=== PATIENT | male | born 1955 | race Caucasian/White ===

== ENCOUNTER 2017-05-03 19:17 | Inpatient (IN) | payer MEDICARE ==
[2017-05-03 20:13] LABS: #Basophils 0.1 thou/uL (0.0-0.2); #Eosinphils 0.1 thou/uL (0.0-0.7); #Lymphocytes 1.1 thou/uL (1.20-3.40); #Monocytes 0.8 thou/uL (0.11-0.59); #Neutrophils 6.9 thou/uL (1.40-6.50); %Basophils 0.6 % (0.0-1.0); %Eosinophils 0.7 % (0.0-10.0); %Lymphocytes 12.1 % (21.0-51.0); %Monocytes 9.4 % (0.0-10.0); Hematocrit 50.8 % (42.0-52.0); Mean Platelet Volume 8.3 fL (7.4-10.4); Red Blood Cell (RBC) Count 5.37 mill/uL (4.70-6.10); White Blood Cell (WBC) Count 8.9 thou/uL (4.8-10.8)
[2017-05-03 20:34] LABS: ALT (SGPT) 14 U/L (8-55); AST (SGOT) 32 U/L (5-34); Alkaline Phosphatase 53 U/L (40-150); Anion Gap 13 mmol/L (10-20); BUN (Urea Nitrogen) 26 mg/dL (8.4-25.7); Bilirubin, Total 0.6 mg/dL (0.2-1.2); Calc. Creatinine Clearance 0 mL/min (70-130); Calcium 8.5 mg/dL (7.8-10.44); Carbon Dioxide 26 mmol/L (23-31); Chloride 99 mmol/L (98-107); Estimated GFR-MDRD 53; Globulin 4.2 g/dL (2.4-3.5); Lipase 59 U/L (8-78); Protein, Total 7.5 g/dL (5.8-8.1)
[2017-05-03 20:36] LABS: Lactic Acid - Sepsis 3.3 mmol/L (0.5-2.2)
--- NOTE | 2017-05-03 20:47 | RAD ---
CHEST ONE VIEW 05/03/17 HISTORY: Recurrent hernia pain. COMPARISON: 11/23/10. FINDINGS: Portable upright chest: Limited evaluation due to motion. Heart is enlarged. Pulmonary vessels are prominent. Patchy intersti tial and alveolar opacities. No pleural effusion. No pneumothorax. IMPRESSION: 1. Limited evaluation due to motion. 2. Cardiomegaly. Interstitial and alveolar opacities. Congestive heart failure. POS: [facility]
[2017-05-03] MEDS ORDERED: Furosemide 40 MG/4 ML VIAL ONE (22:17)
[2017-05-03 22:28] LABS: Troponin I 0.032 ng/mL (< 0.028)
[2017-05-04 01:36] LABS: Troponin I 0.037 ng/mL (< 0.028)
[2017-05-04] MEDS ORDERED: Dextrose 50% Abboject 50 ML SYRINGE SLOW IVP PRN (02:03)
[2017-05-04] MEDS ORDERED: HYDROcodone/Acetaminophen 5/325 mg Tablet PO PRN (02:03)
[2017-05-04] MEDS ORDERED: HYDROcodone/Acetaminophen 10/325 mg Tablet PO PRN (02:03)
[2017-05-04] MEDS ORDERED: Ondansetron ODT 4 MG TAB PO PRN (02:03)
[2017-05-04] MEDS ORDERED: HumaLOG 300 UNITS/3 ML VIAL SC PRN (02:03)
[2017-05-04] MEDS ORDERED: Dextrose 5% in Water 1,000 ML IV PRN (02:03)
[2017-05-04] MEDS ORDERED: Acetaminophen 325 MG TAB PO PRN (02:03)
[2017-05-04 02:18] VITALS: BMI 49.3
[2017-05-04 03:09] LABS: #Eosinphils 0.1 thou/uL (0.0-0.7); #Lymphocytes 1.2 thou/uL (1.20-3.40); #Monocytes 1.1 thou/uL (0.11-0.59); #Neutrophils 8.2 thou/uL (1.40-6.50); %Basophils 0.1 % (0.0-1.0); %Eosinophils 0.6 % (0.0-10.0); %Lymphocytes 11.3 % (21.0-51.0); Hematocrit 48.2 % (42.0-52.0); Mean Platelet Volume 8.2 fL (7.4-10.4); Red Blood Cell (RBC) Count 5.09 mill/uL (4.70-6.10); White Blood Cell (WBC) Count 10.5 thou/uL (4.8-10.8)
[2017-05-04] MEDS: Furosemide 40 MG/4 ML VIAL SLOW IVP SCH ×4 (03:30→20:07)
[2017-05-04 03:32] LABS: Anion Gap 11 mmol/L (10-20); BUN (Urea Nitrogen) 27 mg/dL (8.4-25.7); Calc. Creatinine Clearance 130 mL/min (70-130); Calcium 8.5 mg/dL (7.8-10.44); Carbon Dioxide 30 mmol/L (23-31); Chloride 98 mmol/L (98-107); Estimated GFR-MDRD 56; Troponin I 0.025 ng/mL (< 0.028)
--- NOTE | 2017-05-04 06:29 | HP ---
DATE OF ADMISSION: 05/03/2017 TIME OF SERVICE: 11:45 p.m. CHIEF COMPLAINT: Shortness of breath. HISTORY OF PRESENT ILLNESS: Mr. Franco is a 62-year-old white male with history of severe obesity, sleep apnea, coronary artery disease that needs operative intervention, CHF presumably combined systolic and diastolic, and diabetes mellitus who presents to the emergency department for evaluation of abdominal discomfort. The patient initially says he came to the ER because he felt like his umbilical hernia repair that he had 15 years ago was coming undone. He had increased firmness to his belly and seemed to have more pain around the umbilical region. He also has a history of a leg ulcer due to chronic venous insufficiency and chronic edema. He has had increased drainage from the wound and some foul odor. In the ER, I was concerned with cellulitis. On arrival to the ER today, his oxygen saturation was noted to be 86% to 88% on room air and chest x-ray showed interstitial and alveolar opacity consistent with CHF, so we were called for admission. The patient denies any fevers or chills, no chest pain, no diarrhea or constipation. Does have some shortness of breath with orthopnea and PND. He has dyspnea on exertion. Noticed increased edema of his legs over baseline. He says his history really began 3 weeks ago with increased abdominal discomfort and 1 week ago had sneezing and cough and upper respiratory symptoms and then 1 to 2 days of increased shortness of breath. No other current complaints. PAST MEDICAL HISTORY: 1. Coronary artery disease, the patient had normal stress test. He underwent left heart catheterization a few months ago with Dr. Castorena and had what he thinks is three-vessel coronary artery disease and needs bypass surgery. He did see Dr. Blanco, but Dr. Blanco wanted him off cigarettes for 2 weeks prior to surgery and the patient was unable to do this until this time. He has been looking to seeing a hypnotist to help him quit smoking. 2. Congestive heart failure, unknown type, given his sleep apnea, severe obesity and multivessel coronary diseasecombined systolic and diastolic. 3. Diabetes mellitus type 2, non-insulin dependent. 4. Hypertension. 5. COPD. 6. Severe obesity. 7. Obstructive sleep apnea. Suspect the patient has cor pulmonale. PAST SURGICAL HISTORY: Includes, 1. Hemorrhoidectomy remotely. 2. Umbilical hernia repair, 12 to 15 years ago. 3. Back surgery in 1992, he thinks L4-L5 diskectomy and fusion. 4. Left heart catheterization with Dr. Castorena. HOME MEDICATIONS: 1. Lasix 40 mg daily. 2. Lisinopril/HCTZ 20/25 p.o. daily. 3. Metformin 1000 mg p.o. b.i.d. 4. Pravastatin 4 mg p.o. q.a.m. 5. Fenofibrate 48 mg daily. 6. Metoprolol tartrate 12.5 mg p.o. b.i.d. ALLERGIES: LATEX AND PENICILLIN. FAMILY HISTORY: Negative for clotting or bleeding disorder, no immune dysfunction. SOCIAL HISTORY: Significant for ongoing tobacco 1 pack per day. He has been smoking since he was in his teens, 2 packs per day until the last couple of months. He does not use any alcohol or IV drugs. He is to a common- law . REVIEW OF SYSTEMS: A 10-point review of systems was performed and negative for all other systems except stated as per HPI. PHYSICAL EXAMINATION: VITAL SIGNS: Temperature 98.0, pulse 98, blood pressure 102/73, respiratory rate 22, satting 94% on room air. GENERAL: He is awake. He is alert. He is oriented x3. He is a severely obese white male, appears to be in no distress. HEENT: Normocephalic, atraumatic. Pupils equal and reactive bilaterally. Mucous membranes are moist without visible lesions or thrush. LUNGS: Have coarse bilateral crackles to about mid lung field. He does not have any wheezing. No prolonged expiratory phase. Symmetrical chest excursion with good air movement. CARDIOVASCULAR: Has normal cardiac and regular. There is normal S1, S2. I do not appreciate murmurs. Heart sounds are extremely distant due to body habitus. ABDOMEN: Obese, it is nontender but tense. It is nondistended. I cannot palpate internal organs. EXTREMITIES: No cyanosis, no clubbing. He has a 3+ edema in the bilateral extremities at the knee level. Left lower extremity has a lateral ulceration. Slightly red around the area, it does have a foul odor, but does not appear necrotic. There is no crepitus. NEUROLOGIC: Cranial nerves II-XII are grossly intact without any focal neurologic deficits. He has good normal speech pattern and 5/5 strength. SKIN: Otherwise, warm, moist, and well perfused without any rash or lesions. MUSCULOSKELETAL: His large joints appear normal. There is no inflammation and no palpable effusions. LABORATORY DATA: Sodium 134, potassium 4.0, chloride 99, bicarbonate 26, BUN 26 , creatinine 1.36, glucose 101. Albumin is little bit low at 3.3, calcium 8.5. Lipase was normal at 59. Lactic acid 3.3 and CBC was normal. No BNP was performed. Chest x-ray showed cardiomegaly and interstitial/alveolar opacities consistent with CHF. ASSESSMENT AND PLAN: 1. Acute exacerbation of congestive heart failure: Suspect acute on chronic combined systolic and diastolic congestive heart failure. Give IV Lasix, will get a 2D echocardiogram, we will get strict I's and O's and daily weight. We will reevaluate in the morning. Does have known coronary artery disease, we will get serial cardiac biomarkers as well. 2. Coronary artery disease, as above. 3. Diabetes mellitus type 2. We will hold his metformin in the setting of increased lactic acid. We will use sliding scale insulin per correction. 4. Chronic obstructive pulmonary disease: Currently asymptomatic without acute exacerbation. 5. Hypertension. We will continue home medicines . 6. Severe obesity. 7. Obstructive sleep apnea, not on CPAP. MTDD
[2017-05-04] MEDS ORDERED: Piperacillin/Tazobactam 4.5 GM in Sodium Chloride 0.9% 100 ML IVPB SCH (09:00)
[2017-05-04] MEDS ORDERED: Vancomycin HCl 1 GM in Premix Bag 1 BAG IVPB SCH (09:00)
[2017-05-04] MEDS: Lisinopril/Hydrochlorothiazide 20/25 mg Tablet PO SCH (09:10)
[2017-05-04] MEDS: Famotidine 20 MG TAB PO SCH ×2 (09:10→20:07)
[2017-05-04] MEDS: Enoxaparin Sodium 40 MG/0.4 ML SYRINGE SC SCH (09:10)
[2017-05-04 10:53] LABS: Troponin I 0.028 ng/mL (< 0.028)
--- NOTE | 2017-05-04 14:45 | PDOC.PN ---
- Subjective Encounter Start Date: 05/04/17 Encounter Start Time: 14:30 Subjective: f/u for CHF likely diastolic with hx of 3v CAD needing CABG. Pt continues -: to smoke and CTS not willing to perform CABG if smoking. - Objective Resuscitation Status: Resuscitation Status FULL:Full Resuscitation MAR Reviewed: Yes Vital Signs & Weight: Vital Signs (12 hours) Temp Pulse Resp BP BP Pulse Ox 05/04/17 11:15 97.4 F L 97 20 131/89 95 05/04/17 09:10 96 117/78 05/04/17 07:25 97.9 F 96 20 117/78 93 L 05/04/17 07:20 97.9 F 96 20 93 L 05/04/17 04:00 98.1 F 98 20 116/64 91 L Weight Admit Weight 243 lb 9.6 oz Weight 343 lb 9.6 oz I&O: 05/03/17 05/04/17 05/05/17 06:59 06:59 06:59 Intake Total 680 Balance 680 Result Diagrams: 05/04/17 02:59 05/04/17 02:59 Additional Labs: Accuchecks 05/04/17 05/04/17 11:26 07:15 POC Glucose 115 H 116 H Microbiology 05/03/17 20:56 Venous blood - Left Hand Blood Culture - Preliminary Specimen has been received and culture in progress. No Growth to date. 05/03/17 20:53 Venous blood - Right Hand Blood Culture - Preliminary Specimen has been received and culture in progress. No Growth to date. Laboratory Tests 05/03/17 05/03/17 05/04/17 19:42 23:55 02:59 Troponin I 0.032 H 0.037 H 0.025 05/04/17 10:14 Troponin I 0.028 Radiology Reviewed by me: Yes (PCXR - interstitial markings, pulm edema) EKG Reviewed by me: Yes (Tele - SR with nadir) Phys Exam - Physical Examination Constitutional: NAD HEENT: PERRLA, oral pharynx no lesions Neck: no JVD, supple diminished in bases, coarse sounds bilat Cardiovascular: RRR firm Gastrointestinal: non-tender, no distention, positive bowel sounds Musculoskeletal: pulses present, edema present Neurological: normal sensation, moves all 4 limbs Psychiatric: A&O x 3 Deviation from normal: skin breakdown, erythema of bilat calf region with open wounds Skin: normal turgor, cap refill <2 seconds Dx/Plan (1) Acute on chronic diastolic CHF (congestive heart failure) Code(s): I50.33 - ACUTE ON CHRONIC DIASTOLIC (CONGESTIVE) HEART FAILURE Status : Acute Comment: Continue Lasix 40mg IV q6h, I/O's and daily weight, 2D Echo pending (2) CAD (coronary artery disease) Code(s): I25.10 - ATHSCL HEART DISEASE OF THREE AFFILIATED CORONARY ARTERY W/O ANG PCTRS Status: Chronic Comment: 3v CAD, needs CABG but still smoking (3) Tobacco abuse Code(s): Z72.0 - TOBACCO USE Status: Chronic Comment: Smoking cessation resources, consider Nicotine patch (4) Diabetes mellitus type II, uncontrolled Code(s): E11.65 - TYPE 2 DIABETES MELLITUS WITH HYPERGLYCEMIA Status: Chronic Comment: Continue ISS, resume Metformin, check A1C (5) Venous stasis ulcer Code(s): I83.009 - VARICOSE VEINS OF UNSP LOWER EXTREMITY W ULCER OF UNSP SITE; L97.909 - NON-PRS CHRONIC ULC UNSP PRT OF UNSP LOW LEG W UNSP SEVERITY Status : Acute Qualifiers: Venous stasis ulcer site: calf Comment: Continue local WCT, daily dressings, decrease edema (6) Morbid obesity Code(s): E66.01 - MORBID (SEVERE) OBESITY DUE TO EXCESS CALORIES Status: Chronic (7) MARTHA (obstructive sleep apnea) Code(s): G47.33 - OBSTRUCTIVE SLEEP APNEA (ADULT) (PEDIATRIC) Status: Chronic Comment: Needs outpt sleep study and home CPAP - Plan PT/OT, clinical social worker, respiratory therapy stable currently -: Continue pulmonary support, add Duonebs q4h prn -: Resume Metoprolol 12.5mg BID -: Outpt sleep study for MARTHA -: AM lab: BMP, CBC * .
[2017-05-04] MEDS: Atorvastatin Calcium 10 MG TAB PO SCH (20:07)
[2017-05-04] MEDS: Metoprolol Tartrate 25 MG TAB PO SCH (20:08)
[2017-05-05 06:39] LABS: Hematocrit 45.2 % (42.0-52.0); Neutrophil 82 % (42-75); Red Blood Cell (RBC) Count 4.66 mill/uL (4.70-6.10); White Blood Cell (WBC) Count 9.4 thou/uL (4.8-10.8)
[2017-05-05 07:04] LABS: Anion Gap 12 mmol/L (10-20); BUN (Urea Nitrogen) 34 mg/dL (8.4-25.7); Calc. Creatinine Clearance 100 mL/min (70-130); Calcium 8.5 mg/dL (7.8-10.44); Carbon Dioxide 31 mmol/L (23-31); Chloride 96 mmol/L (98-107); Estimated GFR-MDRD 41
[2017-05-05] MEDS: Lisinopril/Hydrochlorothiazide 20/25 mg Tablet PO SCH (08:56)
[2017-05-05] MEDS: Metoprolol Tartrate 25 MG TAB PO SCH ×2 (08:56→21:15)
[2017-05-05] MEDS: Famotidine 20 MG TAB PO SCH ×2 (08:56→21:15)
[2017-05-05] MEDS: metFORMIN 500 MG TAB PO SCH (08:56)
[2017-05-05] MEDS: Enoxaparin Sodium 40 MG/0.4 ML SYRINGE SC SCH (08:57)
--- NOTE | 2017-05-05 09:35 | PDOC.PN ---
- Subjective Encounter Start Date: 05/05/17 Encounter Start Time: 09:30 Subjective: f/u for diastolic CHF exacerbation on Lasix currently. Less SOB, still -: with swelling on legs. - Objective Resuscitation Status: Resuscitation Status FULL:Full Resuscitation MAR Reviewed: Yes Vital Signs & Weight: Vital Signs (12 hours) Temp Pulse Resp BP BP BP Pulse Ox 05/05/17 09:03 94/54 L 112/71 119/83 05/05/17 08:56 84 05/05/17 08:00 97.5 F L 84 18 138/73 99 05/05/17 06:27 86 18 05/05/17 04:09 92 L 05/05/17 03:38 99.8 F H 84 20 150/72 H 100 05/04/17 23:57 92 L 05/04/17 23:43 98.6 F 78 20 124/71 98 Weight Admit Weight 243 lb 9.6 oz Weight 342 lb I&O: 05/04/17 05/05/17 05/06/17 06:59 06:59 06:59 Intake Total 2220 Output Total 1920 Balance 300 Result Diagrams: 05/05/17 05:19 05/05/17 05:19 Additional Labs: Accuchecks 05/05/17 05/04/17 05/04/17 05:53 20:52 17:20 POC Glucose 168 H 95 117 H 05/04/17 11:26 POC Glucose 115 H Microbiology 05/03/17 20:56 Venous blood - Left Hand Blood Culture - Preliminary Specimen has been received and culture in progress. No Growth to date. 05/03/17 20:53 Venous blood - Right Hand Blood Culture - Preliminary Specimen has been received and culture in progress. No Growth to date. Laboratory Tests 05/03/17 05/03/17 05/03/17 19:42 19:46 23:55 Creatinine 1.36 H Troponin I 0.032 H 0.037 H 05/04/17 05/04/17 05/04/17 02:59 02:59 10:14 Creatinine 1.30 Troponin I 0.025 0.028 Radiology Reviewed by me: Yes (2D echo - EF 55%, limited exam, MR, AV sclerosis , LAE) EKG Reviewed by me: Yes (Tele - SR) Phys Exam - Physical Examination Constitutional: NAD HEENT: PERRLA, oral pharynx no lesions Neck: no JVD, supple diminished in bases II/ RIK RUSB Cardiovascular: RRR obese Gastrointestinal: soft, non-tender, no distention, positive bowel sounds chronic venous stasis changes bilat LE's Musculoskeletal: pulses present, edema present Neurological: normal sensation, moves all 4 limbs Psychiatric: A&O x 3 Skin: normal turgor, cap refill <2 seconds Dx/Plan (1) Acute on chronic diastolic CHF (congestive heart failure) Code(s): I50.33 - ACUTE ON CHRONIC DIASTOLIC (CONGESTIVE) HEART FAILURE Status : Acute Comment: Continue Lasix 40mg IV q6h, I/O's and daily weight, Echo with EF 55% (2) CAD (coronary artery disease) Code(s): I25.10 - ATHSCL HEART DISEASE OF [place] CORONARY ARTERY W/O ANG PCTRS Status: Chronic Comment: 3v CAD, needs CABG but still smoking (3) Tobacco abuse Code(s): Z72.0 - TOBACCO USE Status: Chronic Comment: Smoking cessation resources, consider Nicotine patch (4) Diabetes mellitus type II, uncontrolled Code(s): E11.65 - TYPE 2 DIABETES MELLITUS WITH HYPERGLYCEMIA Status: Chronic Comment: Continue ISS, resume Metformin, check A1C (5) Venous stasis ulcer Code(s): I83.009 - VARICOSE VEINS OF UNSP LOWER EXTREMITY W ULCER OF UNSP SITE; L97.909 - NON-PRS CHRONIC ULC UNSP PRT OF UNSP LOW LEG W UNSP SEVERITY Status : Acute Qualifiers: Venous stasis ulcer site: calf Comment: Continue local WCT, daily dressings, decrease edema (6) Morbid obesity Code(s): E66.01 - MORBID (SEVERE) OBESITY DUE TO EXCESS CALORIES Status: Chronic (7) MARTHA (obstructive sleep apnea) Code(s): G47.33 - OBSTRUCTIVE SLEEP APNEA (ADULT) (PEDIATRIC) Status: Chronic Comment: Needs outpt sleep study and home CPAP - Plan out of bed/ambulate Stable currently -: Continue Lasix 40mg IV q12h -: Local WCT for LE's -: Continue Metoprolol, Lisinopril/HCTZ -: AM lab: BMP * Likely home in am
[2017-05-05] MEDS ORDERED: Furosemide 40 MG/4 ML VIAL SLOW IVP SCH ×2 (10:00→10:30)
[2017-05-05] MEDS: Furosemide 40 MG/4 ML VIAL SLOW IVP SCH (14:36)
[2017-05-05] MEDS: Atorvastatin Calcium 10 MG TAB PO SCH (21:15)
[2017-05-06] MEDS: Furosemide 40 MG/4 ML VIAL SLOW IVP SCH ×2 (05:32→14:59)
[2017-05-06 06:27] LABS: Anion Gap 14 mmol/L (10-20); BUN (Urea Nitrogen) 43 mg/dL (8.4-25.7); Calc. Creatinine Clearance 89 mL/min (70-130); Calcium 8.6 mg/dL (7.8-10.44); Carbon Dioxide 29 mmol/L (23-31); Chloride 95 mmol/L (98-107); Estimated GFR-MDRD 36
[2017-05-06 08:18] VITALS: BP 148/73
[2017-05-06] MEDS: metFORMIN 500 MG TAB PO SCH (08:42)
[2017-05-06] MEDS: Famotidine 20 MG TAB PO SCH (08:42)
[2017-05-06] MEDS: Metoprolol Tartrate 25 MG TAB PO SCH (08:42)
[2017-05-06] MEDS: Lisinopril/Hydrochlorothiazide 20/25 mg Tablet PO SCH (08:42)
[2017-05-06] MEDS: Enoxaparin Sodium 40 MG/0.4 ML SYRINGE SC SCH (08:43)
--- NOTE | 2017-05-06 11:46 | PDOC.EVN ---
Event Note - Event Note Event Note: Pt noted with room air O2 sat 71% at rest. Will need home O2 setup at 2-3L/min NC continuously. Diagnosis includes COPD, CHF.
[2017-05-06 14:18] VITALS: TEMP 98.1
--- NOTE | 2017-05-06 16:20 | DIS ---
DATE OF ADMISSION: 05/03/2017 DATE OF DISCHARGE: 05/06/2017 DISCHARGE DIAGNOSES: 1. Acute on chronic diastolic congestive heart failure with ejection fraction of 55%. 2. Chronic lower extremity venous stasis ulcers. 3. Chronic hypoxemic respiratory failure with oxygen requirement at 2-3 liters per minute by nasal c annula. 4. Coronary artery disease, 3-vessel. 5. Tobacco abuse, ongoing. 6. Diabetes mellitus type 2. 7. Morbid obesity. 8. Hyperlipidemia. 9. Obstructive sleep apnea. 10. Chronic kidney disease, stage 3. CONSULTATIONS: None. PERTINENT LAB AND X-RAY FINDINGS: Creatinine ranged between 1.30-1.90. Estimated GFR ranged between 36-56. Troponin I ranged between 0.025-0.037. BNP 1104. CBC showed a hemoglobin ranging between 1 3.5-15.4. Blood cultures x2 from 05/03/2017 showed no growth at 48 hours. Portable chest x-ray date d 05/03/2017 showed interstitial and alveolar opacities consistent with pulmonary edema. A 2D transt horacic echocardiogram dated 05/04/2017 showed ejection fraction of 55-60%. Technically limited stud y. Moderate left atrial enlargement. Moderate mitral valve regurgitation. Aortic valve sclerosis. HOSPITAL COURSE: Patient was initially admitted to the telemetry unit after presenting with increase d shortness of breath and lower extremity edema in the context of known 3-vessel coronary artery dise ase needing operative intervention; however, on hold until patient is tobacco free. The patient was treated with IV Lasix after increased lower extremity and abdominal edema noted. The patient had a d iuresis with IV Lasix and received local wound care to left lower extremity venous ulcers secondary t o stasis changes. The patient was also evaluated after O2 saturations were noted at 71% on room air resting. The patient received oxygen supplementation at 2-3 liters per minute by nasal cannula with overall increase in oxygen saturations to the mid 90% range. The patient was counseled on the need f or smoking cessation and medication compliance. The patient was also counseled regarding the need fo r dietary compliance and weight loss. The patient overall symptomatically improved with supportive m easures, IV Lasix and oxygen supplementation. The patient is stable and ready for discharge on 05/06. DISCHARGE MEDICATIONS: 1. Lasix 40 mg 1 tab p.o. b.i.d. 2. Fenofibrate 48 mg 1 tab p.o. daily. 3. Lisinopril/hydrochlorothiazide 20/25 mg 1 tab p.o. daily. 4. Metformin 1000 mg p.o. q.a.m, hold x48 hours. 5. Metoprolol tartrate 12.5 mg p.o. b.i.d. 6. Pravachol 40 mg p.o. at bedtime. FOLLOWUP: The patient will follow up with his primary care provider, Dr. China Limon, on 05/08/2017. Patient will also be given referral to [facility]. CONDITION ON DISCHARGE: Fair. ACTIVITY: Ad radha. DIET: Heart healthy and ADA. SPECIAL INSTRUCTIONS: Home oxygen will be set up at 2-3 liters per minute by nasal cannula fidel baez. CODE STATUS: Full. DISPOSITION: Home on 05/06/2017. Total time preparing and coordinating discharge is 36 minutes.
--- NOTE | 2017-05-08 13:25 | EKG ---
Test Reason : COUGH Blood Pressure : / mmHG Vent. Rate : 094 BPM Atrial Rate : 094 BPM P-R Int : 188 ms QRS Dur : 094 ms QT Int : 392 ms P-R-T Axes : 004 023 002 degrees QTc Int : 490 ms Sinus rhythm with Premature atrial complexes Inferior infarct , age undetermined Abnormal ECG Confirmed by GARETT GIBBS MD ([id number]), health editor DONIS JARRELL ([id number]) on 05/08/2017 1:25:03 PM Referred By: Confirmed By:GARETT GIBBS MD
== END 2017-05-06 20:00 | disposition home or self-care (01) | DRG 291 ==
LOC: ERS 19:17 → 2NO 21:50
PROVIDERS: ADMIT Internal Medicine Infectious Disease; ATTEND Internal Medicine Infectious Disease
DX: I13.0 Hypertensive heart and chronic kidney disease with heart failure and stage 1 through stage 4 chronic kidney disease, or unspecified chronic kidney disease (principal); I50.33 Acute on chronic diastolic (congestive) heart failure; J96.11 Chronic respiratory failure with hypoxia; E11.22 Type 2 diabetes mellitus with diabetic chronic kidney disease; E11.622 Type 2 diabetes mellitus with other skin ulcer; Z68.42 Body mass index [BMI] 45.0-49.9, adult; L97.229 Non-pressure chronic ulcer of left calf with unspecified severity; I87.2 Venous insufficiency (chronic) (peripheral); J44.9 Chronic obstructive pulmonary disease, unspecified; F17.210 Nicotine dependence, cigarettes, uncomplicated; I25.10 Atherosclerotic heart disease of native coronary artery without angina pectoris; R74.0 Nonspecific elevation of levels of transaminase and lactic acid dehydrogenase [LDH]; E66.01 Morbid (severe) obesity due to excess calories; G47.33 Obstructive sleep apnea (adult) (pediatric); E78.5 Hyperlipidemia, unspecified; I08.0 Rheumatic disorders of both mitral and aortic valves; N18.3 Chronic kidney disease, stage 3 (moderate)
CPT/HCPCS: 36415; 36416; 71010; 80048; 80053; 82553; 83605; 83690; 83880; 84484; 85007; 85025; 85027; 86900; 86901; 87040; 93005; 93306; 94640; 94760; 96365; 96375; A4216; J1650; J1940; J3370; J7620

== ENCOUNTER 2017-05-08 09:44 | Observation (INO) | payer MEDICARE ==
[2017-05-08 11:09] LABS: Lactic Acid - Sepsis 1.9 mmol/L (0.5-2.2)
[2017-05-08 11:13] LABS: #Basophils 0.1 thou/uL (0.0-0.2); #Lymphocytes 0.7 thou/uL (1.20-3.40); #Monocytes 0.8 thou/uL (0.11-0.59); #Neutrophils 7.9 thou/uL (1.40-6.50); %Basophils 0.6 % (0.0-1.0); %Eosinophils 0.4 % (0.0-10.0); %Monocytes 8.7 % (0.0-10.0); Hematocrit 50.2 % (42.0-52.0); Mean Platelet Volume 8.7 fL (7.4-10.4); Red Blood Cell (RBC) Count 5.26 mill/uL (4.70-6.10); White Blood Cell (WBC) Count 9.5 thou/uL (4.8-10.8)
[2017-05-08 11:19] LABS: Troponin I 0.025 ng/mL (< 0.028)
[2017-05-08 11:22] LABS: ALT (SGPT) 19 U/L (8-55); AST (SGOT) 39 U/L (5-34); Alkaline Phosphatase 51 U/L (40-150); Anion Gap 12 mmol/L (10-20); BUN (Urea Nitrogen) 37 mg/dL (8.4-25.7); Bilirubin, Total 0.7 mg/dL (0.2-1.2); Calc. Creatinine Clearance 0 mL/min (70-130); Calcium 9.3 mg/dL (7.8-10.44); Carbon Dioxide 33 mmol/L (23-31); Chloride 98 mmol/L (98-107); Estimated GFR-MDRD 71; Globulin 5.1 g/dL (2.4-3.5); Lipase 52 U/L (8-78); Protein, Total 8.5 g/dL (5.8-8.1)
--- NOTE | 2017-05-08 11:34 | RAD ---
PORTABLE CHEST: HISTORY: Cough. COMPARISON: 05/03/2017 FINDINGS: Cardiomegaly and vascular congestion are again noted. the degree of vascular congestion appears impr bernardo when compared to 05/03/2017. There is evidence of bilateral effusions and bibasilar atelectasis . POS: [facility]
[2017-05-08 12:08] LABS: Bilirubin Negative (Negative); Blood, Urine Negative (Negative); Glucose, Urine (Dipstick) Negative (Negative); Ketone, Urine Negative (Negative); Nitrite Negative (Negative); Protein, Urine (Dipstick) Trace mg/dL (Neg-Trace); Urobilinogen 0.2 mg/dL (0.2-1.0)
--- NOTE | 2017-05-08 12:46 | CT ---
CT ANGIOGRAM OF THE CHEST: History: Chest pain, altered mental status. Shortness of breath. Congestive heart failure. Comparison: None. Technique: CT angiogram of the chest was performed in the axial plane. Bilateral oblique, coronal and sagittal 3D reformatted images are submitted for interpretation. FINDINGS: Evaluation is limited by motion degradation. Heart is enlarged. There are coronary artery calcification. No significant pericardial fluid. The tho racic aorta and upper abdominal aorta are grossly unremarkable. There is evidence of perihepatic and perisplenic free fluid. There is a hypodensity in the right uppe r quadrant, incompletely evaluated, which may represent a renal cyst with attenuation coefficient of 25 Hounsfield units. Small bilateral pleural effusions. Consolidation in the right lower lobe likely due to atelectasis or pneumonia. Thickening of the right major and minor fissure due to pleural fluid. No suspicious amber s or consolidation of the right or left lung. Limited evaluation of the pulmonary arterial system due to timing of bolus as well as due to motion d egradation. There is adequate contrast opacification of the pulmonary arterial system at the level of the central arteries. The lobar, segmental and subsegmental arteries cannot be adequately assessed. There is no obvious central pulmonary artery embolism. There is a nonspecific right paratracheal lymph node with a fatty nilay measuring 2.6 x 2.2 cm. Lymph node has increased when compared to the examination of 2011. IMPRESSION: 1. Limited evaluation due to motion degradation and poor timing of bolus. No obvious central pulmonar y artery embolism. 2. Bilateral pleural effusions. 3. Right lower lobe consolidation due to atelectasis or pneumonia. 4. Interval increased size of a nonspecific right paratracheal lymph node. 5. Indeterminate hypodensity of the right upper quadrant which may represent a complex right renal cy st. Renal pelvic ultrasound is recommended, non-emergently. POS: [facility]
[2017-05-08] MEDS ORDERED: ISOVUE-370 76%-LOCM 1 ML ONE (13:12)
--- NOTE | 2017-05-08 13:51 | CT ---
BRAIN CT WITHOUT IV CONTRAST: HISTORY: A 62-year-old male with altered mental status. Weakness. FINDINGS: There is motion artifact, which degrades image quality. No focal mass or midline shift. No intraaxi al or extraaxial hemorrhage. Sinus mucosal disease, particularly of the left maxillary sinus. The m astoids are clear. IMPRESSION: 1. No mass, bleed, or other significant acute intracranial process. Motion artifact lowers the sens itivity of this study. 2. Left maxillary sinus mucosal disease. POS: [facility]
[2017-05-08 14:11] LABS: Troponin I 0.034 ng/mL (< 0.028)
[2017-05-08] MEDS ORDERED: Acetaminophen 325 MG TAB PO PRN (16:33)
[2017-05-08 17:19] LABS: Troponin I 0.031 ng/mL (< 0.028)
[2017-05-08] MEDS ORDERED: hydrALAZINE 20 MG/ML VIAL SLOW IVP PRN (20:14)
[2017-05-08] MEDS ORDERED: Acetaminophen 500 MG TAB PO PRN (20:14)
[2017-05-08] MEDS ORDERED: Dextrose 50% Abboject 50 ML SYRINGE SLOW IVP PRN (20:14)
[2017-05-08] MEDS ORDERED: Ondansetron ODT 4 MG TAB PO PRN (20:14)
[2017-05-08] MEDS ORDERED: cloNIDine 0.1 MG TAB PO PRN (20:14)
[2017-05-08] MEDS ORDERED: Benzonatate 100 MG CAP PO PRN (20:14)
[2017-05-08] MEDS ORDERED: Ondansetron HCl/PF 4 MG/2 ML Vial IVP PRN (20:14)
[2017-05-08] MEDS ORDERED: HumaLOG 300 UNITS/3 ML VIAL SC PRN ×2 (20:14)
[2017-05-08] MEDS ORDERED: Dextrose 5% in Water 1,000 ML IV PRN (20:14)
[2017-05-08] MEDS: Atorvastatin Calcium 10 MG TAB PO SCH (22:18)
[2017-05-08] MEDS: Famotidine 20 MG TAB PO SCH (22:18)
[2017-05-08] MEDS: Furosemide 40 MG TAB PO SCH (22:18)
[2017-05-08] MEDS: Metoprolol Tartrate 25 MG TAB PO SCH (22:18)
--- NOTE | 2017-05-09 04:06 | HP ---
DATE OF ADMISSION: 05/08/2017 PRIMARY CARE PROVIDER: China Limon M.D. CHIEF COMPLAINT: Altered mental status and lethargy. HISTORY OF PRESENT ILLNESS: This is a 62-year-old male who was recently admitted 7 through 05/06/2017 for acute on chronic diastolic congestive heart failure with ejection fraction 5 5% and acute on chronic hypoxemic respiratory failure secondarily to chronic obstructive pulmonary di sease and severe obstructive sleep apnea, discharged home with oxygen supplementation at 3 liters per minute by nasal cannula. The patient's reports, patient has been somnolent over the last 24 ho urs, sleeping approximately 12 hours, and difficult to arouse. The states she is unsure if the patient was actually wearing his home oxygen the entire time he was at home when she did find him at one point sleeping, he was off his oxygen, at which point, she replaced the nasal cannula. Patient h as been confused, lethargic, minimally active, and not eating over the last 24 hours. No specific do cumented fever, but some mild residual cough. During patient's hospital stay 05/03/2017 through 04/27, patient was treated with IV Lasix, bronchodilator therapy as well as a short trial of noninva sive mechanical ventilation with BiPAP. Patient was noted with O2 saturation of 71% on room air and discharged with 3 liters of oxygen per minute by nasal cannula. Patient's history also significant f or 3-vessel coronary artery disease with the need for coronary artery bypass grafting; however, the s urgeries then placed on hold until patient has been tobacco free. The patient also in need of outpat ient sleep study to obtain a home CPAP/BiPAP. In the emergency room, the patient underwent general e valuation including chest imaging showing bibasilar atelectasis/effusion with mild vascular prominenc e actually improved from previous chest imaging on 05/03/2017. Patient also underwent CT imaging of the brain showing no acute intracranial process. Patient was continued on oxygen supplementation and transferred to the observation unit for further evaluation. PAST MEDICAL HISTORY: 1. Chronic hypoxemic respiratory failure on oxygen supplementation at 3 liters per minute by nasal c annula. 2. Severe obstructive sleep apnea. 3. Chronic diastolic congestive heart failure with recent acute exacerbation with ejection fraction 55%. 4. Chronic lower extremity venous stasis ulcers. 5. Three-vessel coronary artery disease. 6. Tobacco abuse. 7. Diabetes mellitus, type 2. 8. Morbid obesity. 9. Hyperlipidemia. 10. Chronic kidney disease, stage 3. PAST SURGICAL HISTORY: 1. Status post hemorrhoidectomy. 2. Status post umbilical hernia repair. 3. Status post back surgery in the L4-L5 distribution. 4. Status post left heart catheterization. CURRENT MEDICATIONS: 1. Fenofibrate 48 mg p.o. daily. 2. Lasix 40 mg p.o. b.i.d. 3. Lisinopril/hydrochlorothiazide 20/25 mg 1 tab p.o. daily. 4. Metformin 1000 mg p.o. q.a.m. 5. Metoprolol 12.5 mg p.o. b.i.d. 6. Pravachol 40 mg p.o. at bedtime. ALLERGIES: PENICILLIN. FAMILY HISTORY: No inheritable diseases per family report. SOCIAL HISTORY: Patient smokes up to a pack of cigarettes daily, previously on 2 packs per day. No alcohol or illicit drug use. to common-law accompanying him in the hospital. The patie nt resides in [place], [place]. REVIEW OF SYSTEMS: The following complete review of systems was otherwise negative except as stated per HPI: Constitutional: Weight loss or gain, ability to conduct usual activities. Skin: Rash, itching. Eyes: Double vision, pain. ENT/Mouth: Nose bleeding, neck stiffness, pain, tenderness. Cardiovascular: Palpitations, dyspnea on exertion, orthopnea. Respiratory: Shortness of breath, wheezing, cough, hemoptysis, fever, or night sweats. Gastrointestinal: Poor appetite, abdominal pain, heartburn, nausea, vomiting, constipation, or diarr hea. Genitourinary: Urgency, frequency, dysuria, nocturia. Musculoskeletal: Pain, swelling. Neurologic/Psychiatric: Anxiety, depression. Allergy/Immunologic: Skin rash, bleeding tendency. PHYSICAL EXAMINATION: VITAL SIGNS: Currently blood pressure 133/70, pulse 98, respiratory rate 19, temperature 98.2 degree s Fahrenheit, O2 saturation 92% on 4 liters per minute by nasal cannula. GENERAL APPEARANCE: This is a 62-year-old male, somnolent, arouses to name or direct engag ement then falls to sleep rapidly. HEENT: Pupils are equal, round, and reactive to light and accommodation. Extraocular muscles are in tact. No scleral icterus, no conjunctival injection. Nares patent. OP is clear. No lesions noted. NECK: Supple, no cervical adenopathy, no thyromegaly, no carotid bruits, no JVD appreciated. Cervic al spine with full active and passive range of motion. CHEST: Diminished breath sounds in bibasilar segments. Prolonged expiratory phase noted. CARDIOVASCULAR: S1, S2 with distant heart sounds. ABDOMEN: Obese, landmarks are difficult to palpate due to patient's body habitus. No rebound or gua rding noted. Bowel sounds are positive in all 4 quadrants. EXTREMITIES: Pitting edema to the bilateral lower extremities, left greater than right lower extremi ty. Chronic venous stasis changes with skin thickening and erythematous changes bilaterally. Pulses are diminished in palpable distally at the dorsalis pedis, posterior tibial, and popliteal arteries bilaterally. Capillary refill less than 2 seconds. Venous stasis ulcers noted on the left lower ext remity. NEUROLOGIC: Somnolent, arouses to name, speaks 1-2 words and falls asleep. Not observed ambulatory during this exam. PERTINENT LABORATORY DATA AND X-RAY FINDINGS: Sodium 138, potassium 4.9, chloride 98, CO2 of 33, BUN 37, creatinine 1.06 with estimated GFR of 71, glucose 145. Lactic acid level 1.9, calcium 9.3. Tot al bilirubin 0.7, AST 39, ALT 19, alkaline phosphatase 51. Troponin I ranged between 0.025 and 0.034 . BNP 907 previously noted on 05/03/2017 of 1104. Albumin 3.4, lipase 52. CBC showed a white blood cell count of 9.5, hemoglobin 15, hematocrit 50, MCV 95, platelet count 287 with 83% neutrophils. U rinalysis negative. Portable chest x-ray dated 05/08/2017 showed bibasilar atelectasis, degree of va scular congestion, improved compared to the previous imaging 05/03/2017. Bilateral effusions noted. CT angiogram of the chest dated 05/08/2017 showed technically limited exam. No gross evidence of ce ntral pulmonary artery embolus. Bilateral pleural effusions noted. Right lower lobe consolidation w ith atelectasis. CT of the brain without contrast dated 05/08/2017 showed no acute intracranial proc ess. EKG dated 05/08/2017 by my interpretation shows sinus mechanism with heart rates in the 90s, wa ndering baseline noted. Attenuated R waves noted in the precordial leads. Normal axis. No acute ST -T wave changes appreciated. ASSESSMENT AND PLAN: 1. Acute metabolic encephalopathy. Patient will be placed in observation status. Suspect underlyin g hypercapnia/hypoxemia given the patient's known severe obstructive sleep apnea and chronic hypoxemi c respiratory failure. We will place patient on BiPAP noninvasive mechanical ventilation with FIO2 o f 35%. We will continue BiPAP noninvasive mechanical ventilation and monitor clinical response. We will consult Pulmonology Service for any further recommendations and assistance with obtaining outpat ient sleep study and potentially home CPAP/BiPAP device. 2. Acute on chronic hypoxemic hypercapnic respiratory failure. See #1 above. Continue DuoNebs q.4 hours. Continue oxygen supplementation to maintain O2 saturations greater than or equal to 90%. 3. Chronic diastolic congestive heart failure with ejection fraction of 55%. Appears compensated ov erall. Continue home regimen to include lisinopril/hydrochlorothiazide. Continue Lasix 40 mg p.o. b .i.d. 4. Chronic lower extremity venous stasis ulcers. We will continue local wound care. Kayden fulton 5. Three-vessel coronary artery disease. Continue medical management. Patient needing surgical int ervention; however, this is on hold due to patient's ongoing tobacco abuse. 6. Tobacco abuse. Continue smoking cessation resources. 7. Diabetes mellitus, type 2. Insulin sliding scale for reflexive coverage. ADA diet. Accu-Cheks a.c. and at bedtime. 8. Chronic kidney disease, stage 3. Stable currently. Continue serial creatinine monitoring. 9. Prophylaxis. Sequential compression devices on hold due to lower extremity edema and venous rafaela is ulcers. Pepcid 20 mg p.o. b.i.d. CODE STATUS: FULL. Surrogate medical decision maker is patient's .
[2017-05-09 05:42] LABS: Anion Gap 11 mmol/L (10-20); BUN (Urea Nitrogen) 30 mg/dL (8.4-25.7); Calc. Creatinine Clearance 165 mL/min (70-130); Calcium 9.5 mg/dL (7.8-10.44); Carbon Dioxide 35 mmol/L (23-31); Chloride 98 mmol/L (98-107); Estimated GFR-MDRD 77
[2017-05-09 05:53] LABS: Hematocrit 45.1 % (42.0-52.0); Mean Platelet Volume 8.3 fL (7.4-10.4); Red Blood Cell (RBC) Count 4.74 mill/uL (4.70-6.10); White Blood Cell (WBC) Count 9.1 thou/uL (4.8-10.8)
[2017-05-09 05:54] LABS: Band 1 % (5-11); Neutrophil 82 % (42-75)
[2017-05-09] MEDS: Metoprolol Tartrate 25 MG TAB PO SCH ×2 (10:26→21:46)
[2017-05-09] MEDS: Famotidine 20 MG TAB PO SCH ×2 (10:26→21:46)
[2017-05-09] MEDS: Lisinopril/Hydrochlorothiazide 20/25 mg Tablet PO SCH (10:27)
[2017-05-09] MEDS: Furosemide 40 MG TAB PO SCH ×2 (10:28→21:46)
[2017-05-09] MEDS: Fenofibrate 48 MG TAB PO SCH (10:28)
--- NOTE | 2017-05-09 12:17 | PDOC.PN ---
- Subjective Encounter Start Date: 05/09/17 Encounter Start Time: 11:00 Subjective: FEELS TIRED AND SOB. DAUGHTER AT BEDSIDE - Objective Resuscitation Status: Resuscitation Status FULL:Full Resuscitation MAR Reviewed: Yes Vital Signs & Weight: Vital Signs (12 hours) Temp Pulse Resp BP BP Pulse Ox 05/09/17 10:27 97 119/65 05/09/17 09:46 99 22 H 93 L 05/09/17 06:51 94 25 H 95 05/09/17 06:48 89 36 H 94 L 05/09/17 04:26 98.2 F 101 H 22 H 104/59 L 97 05/09/17 02:09 94 26 H 94 L 05/09/17 02:07 94 26 H 94 L Weight Weight 333 lb 3.2 oz I&O: 05/08/17 05/09/17 05/10/17 06:59 06:59 06:59 Intake Total 180 Balance 180 Result Diagrams: 05/09/17 04:55 05/09/17 04:55 Additional Labs: Accuchecks 05/09/17 05/08/17 05/08/17 05:38 20:43 17:44 POC Glucose 106 124 H 111 H Phys Exam - Physical Examination Constitutional: NAD HEENT: PERRLA, moist MMs N/C IN PLACE Neck: supple, full ROM DIMINISHED, COARSE Cardiovascular: RRR, no significant murmur Gastrointestinal: non-tender MORBIDLY OBESE Musculoskeletal: edema present Neurological: moves all 4 limbs Psychiatric: normal affect, A&O x 3 Skin: no rash Dx/Plan (1) Acute on chronic diastolic CHF (congestive heart failure) Code(s): I50.33 - ACUTE ON CHRONIC DIASTOLIC (CONGESTIVE) HEART FAILURE Status : Acute Comment: Continue Lasix 40mg IV q6h, I/O's and daily weight, Echo with EF 55% (2) CAD (coronary artery disease) Code(s): I25.10 - ATHSCL HEART DISEASE OF [place] CORONARY ARTERY W/O ANG PCTRS Status: Chronic Comment: 3v CAD, needs CABG but still smoking (3) Diabetes mellitus type II, uncontrolled Code(s): E11.65 - TYPE 2 DIABETES MELLITUS WITH HYPERGLYCEMIA Status: Chronic Comment: Continue ISS, resume Metformin, check A1C (4) Morbid obesity Code(s): E66.01 - MORBID (SEVERE) OBESITY DUE TO EXCESS CALORIES Status: Chronic (5) MRATHA (obstructive sleep apnea) Code(s): G47.33 - OBSTRUCTIVE SLEEP APNEA (ADULT) (PEDIATRIC) Status: Chronic Comment: Needs outpt sleep study and home CPAP (6) Tobacco abuse Code(s): Z72.0 - TOBACCO USE Status: Chronic Comment: Smoking cessation resources, consider Nicotine patch (7) Acute on chronic respiratory failure with hypoxemia Code(s): J96.21 - ACUTE AND CHRONIC RESPIRATORY FAILURE WITH HYPOXIA Status: Acute - Plan cont current plan of care, plan discussed w/ family, PT/OT, respiratory therapy D/W PULMONARY SERVICE. SLEEP STUDY ORDERED FURTHER RECCS PENDING * .
[2017-05-09 12:57] LABS: Oxyhemoglobin 92.7 % (94.0-97.0); Sodium 141 mmol/L (135-148)
[2017-05-09 12:59] LABS: Mode 4L/M NASAL CANNULA; Modified Allen's Test POSITIVE
[2017-05-09 13:47] VITALS: BMI 49.1
--- NOTE | 2017-05-09 13:47 | CON ---
DATE OF CONSULTATION: 05/09/2017 CONSULTING PHYSICIAN: Dr. Huizar REASON FOR CONSULTATION: Shortness of breath and sleep apnea. HISTORY OF PRESENT ILLNESS: This is a 62-year-old male who has been seen by Dr. Rodarte in our offic e in the past. He was just discharged from the hospital a few days ago after a stay for diastolic co ngestive heart failure. He was discharged home on oxygen and diuretics. Apparently, he did not use oxygen and did not take his diuretics and was readmitted yesterday with altered mental status. Surpr isingly, no blood gas was done in the ER, so I do not know if he was hypercapnic or not. When Dr. Rodarte saw him in the past, it was suspected that he had sleep apnea. The patient almost w ent and had a sleep study done, but became aggravated with the process of filling out forms and did n ot follow through with the study. PAST MEDICAL HISTORY: 1. Chronic hypoxic respiratory failure secondary to diastolic heart dysfunction. 2. Suspected sleep apnea. I do not believe he has had a sleep study in the past. 3. Restrictive lung disease secondary to obesity. 4. Concurrent airway obstruction secondary to tobacco abuse. 5. Diabetes mellitus type 2. 6. Coronary artery disease. 7. Hyperlipidemia. 8. Chronic kidney disease stage 3. PAST SURGICAL HISTORY: Hemorrhoidectomy, umbilical hernia repair, back surgery and cardiac catheteri zation. MEDICATIONS PRIOR TO ADMISSION: Fenofibrate, Lasix, lisinopril/hydrochlorothiazide, metformin, metop rolol, Pravachol. ALLERGIES: PENICILLIN. SOCIAL HISTORY: Smokes a pack a day, previously 2 packs per day. Does not use illicit drugs. Does not drink alcohol. REVIEW OF SYSTEMS: Remarkable for leg swelling, poor ambulation, weight gain. PHYSICAL EXAMINATION: VITAL SIGNS: Temperature 98.2, pulse 97, blood pressure 119/65, O2 sat 93% on 4 liters. He is 5 prakash t 9, weight 333 pounds with a BMI 49.2. GENERAL: He appears chronically ill. HEENT: Remarkable for disheveled santoyo. NECK: No JVD. LUNGS: Crackles both bases. CARDIAC: S1, S2 regular, without murmur. ABDOMEN: Obese, soft. EXTREMITIES: 3+ edema from the knees downward. LABORATORY DATA: White blood cell count 9.1, hematocrit 45.1, platelet count 255. Sodium 140, potas sium 3.6, chloride 98, CO2 35, BUN 30, creatinine 0.9, glucose 109. CT of the chest showed some very miniscule pleural effusions along with some small area of atelectasi s, no evidence of pulmonary embolism. ASSESSMENT: 1. Chronic hypoxic and probably hypercapnic respiratory failure. 2. Sleep apnea. 3. Diastolic cardiac dysfunction. 4. Tobacco abuse. PLAN: I will notify Dr. Rodarte of the patient's admission and see if we can get a sleep study done as an outpatient. I agree with the diuresis. I will check a blood gas to see if he is hypercapnic.
[2017-05-09] MEDS: Atorvastatin Calcium 10 MG TAB PO SCH (21:45)
[2017-05-10] MEDS: Metoprolol Tartrate 25 MG TAB PO SCH (10:30)
[2017-05-10] MEDS: Famotidine 20 MG TAB PO SCH (10:31)
[2017-05-10] MEDS: Fenofibrate 48 MG TAB PO SCH (10:31)
[2017-05-10] MEDS: Furosemide 40 MG TAB PO SCH (10:31)
[2017-05-10] MEDS: Lisinopril/Hydrochlorothiazide 20/25 mg Tablet PO SCH (10:33)
--- NOTE | 2017-05-10 11:45 | PDOC.PN ---
- Subjective Encounter Start Date: 05/10/17 Encounter Start Time: 11:44 Subjective: FEELS LIKE CHOKING WITH LIQUIDS - Objective Resuscitation Status: Resuscitation Status FULL:Full Resuscitation MAR Reviewed: Yes Vital Signs & Weight: Vital Signs (12 hours) Temp Pulse Resp BP Pulse Ox 05/10/17 10:50 80 16 05/10/17 10:33 80 05/10/17 07:10 80 16 05/10/17 04:00 97.5 F L 85 22 H 97/58 L 95 05/10/17 02:41 79 26 H 96 05/10/17 00:29 99 22 H 94 L 05/10/17 00:00 98.0 F 81 25 H 95/51 L 92 L Weight Admit Weight 331 lb 14.4 oz Weight 334 lb I&O: 05/09/17 05/10/17 05/11/17 06:59 06:59 06:59 Intake Total 180 1070 Balance 180 1070 Result Diagrams: 05/09/17 04:55 05/09/17 04:55 Additional Labs: Accuchecks 05/10/17 05/09/17 05/09/17 05:53 20:46 16:14 POC Glucose 101 95 107 05/09/17 12:07 POC Glucose 119 H Phys Exam - Physical Examination Constitutional: NAD HEENT: PERRLA, moist MMs, sclera anicteric Neck: supple, full ROM Respiratory: no rhonchi, clear to auscultation bilateral Cardiovascular: RRR Gastrointestinal: soft, non-tender Musculoskeletal: no edema Neurological: non-focal, moves all 4 limbs Psychiatric: normal affect, A&O x 3 Skin: no rash Dx/Plan (1) Acute on chronic diastolic CHF (congestive heart failure) Code(s): I50.33 - ACUTE ON CHRONIC DIASTOLIC (CONGESTIVE) HEART FAILURE Status : Acute Comment: Continue Lasix 40mg IV q6h, I/O's and daily weight, Echo with EF 55% (2) CAD (coronary artery disease) Code(s): I25.10 - ATHSCL HEART DISEASE OF [place] CORONARY ARTERY W/O ANG PCTRS Status: Chronic Comment: 3v CAD, needs CABG but still smoking (3) Diabetes mellitus type II, uncontrolled Code(s): E11.65 - TYPE 2 DIABETES MELLITUS WITH HYPERGLYCEMIA Status: Chronic Comment: Continue ISS, resume Metformin, check A1C (4) Morbid obesity Code(s): E66.01 - MORBID (SEVERE) OBESITY DUE TO EXCESS CALORIES Status: Chronic (5) MARTHA (obstructive sleep apnea) Code(s): G47.33 - OBSTRUCTIVE SLEEP APNEA (ADULT) (PEDIATRIC) Status: Chronic Comment: Needs outpt sleep study and home CPAP (6) Tobacco abuse Code(s): Z72.0 - TOBACCO USE Status: Chronic Comment: Smoking cessation resources, consider Nicotine patch (7) Acute on chronic respiratory failure with hypoxemia Code(s): J96.21 - ACUTE AND CHRONIC RESPIRATORY FAILURE WITH HYPOXIA Status: Acute - Plan cont current plan of care, continue antibiotics, PT/OT TO REHAB ONCE CLEARED BY PRIMARY SERVICE. -: SPEECH EVAL FOR POSSIBLE ASPIRATION * .
[2017-05-10 12:59] VITALS: TEMP 97.6
--- NOTE | 2017-05-10 13:22 | PDOC.PN ---
- Subjective Encounter Start Date: 05/10/17 Encounter Start Time: 13:22 Subjective: more alert, working with PT, without complaints - Objective Resuscitation Status: Resuscitation Status FULL:Full Resuscitation MAR Reviewed: Yes Vital Signs & Weight: Vital Signs (12 hours) Temp Pulse Resp BP Pulse Ox 05/10/17 12:00 97.6 F 85 13 79/51 L 97 05/10/17 10:50 80 16 05/10/17 10:33 80 05/10/17 08:00 97.9 F 80 16 96 05/10/17 07:10 80 16 05/10/17 04:00 97.5 F L 85 22 H 97/58 L 95 05/10/17 02:41 79 26 H 96 Weight Admit Weight 331 lb 14.4 oz Weight 334 lb I&O: 05/09/17 05/10/17 05/11/17 06:59 06:59 06:59 Intake Total 180 1070 Balance 180 1070 Result Diagrams: 05/09/17 04:55 05/09/17 04:55 Additional Labs: Accuchecks 05/10/17 05/10/17 05/09/17 12:13 05:53 20:46 POC Glucose 115 H 101 95 05/09/17 16:14 POC Glucose 107 Phys Exam - Physical Examination Constitutional: NAD HEENT: PERRLA, moist MMs, sclera anicteric Neck: supple, full ROM Respiratory: wheezing present rhonchi Cardiovascular: RRR wily Gastrointestinal: soft obese morbidly Musculoskeletal: edema present Neurological: non-focal, moves all 4 limbs Psychiatric: normal affect, A&O x 3 Skin: no rash Dx/Plan (1) Acute on chronic diastolic CHF (congestive heart failure) Code(s): I50.33 - ACUTE ON CHRONIC DIASTOLIC (CONGESTIVE) HEART FAILURE Status : Acute Comment: Continue Lasix 40mg IV q6h, I/O's and daily weight, Echo with EF 55% (2) CAD (coronary artery disease) Code(s): I25.10 - ATHSCL HEART DISEASE OF [place] CORONARY ARTERY W/O ANG PCTRS Status: Chronic Comment: 3v CAD, needs CABG but still smoking (3) Diabetes mellitus type II, uncontrolled Code(s): E11.65 - TYPE 2 DIABETES MELLITUS WITH HYPERGLYCEMIA Status: Chronic Comment: Continue ISS, resume Metformin, check A1C (4) Morbid obesity Code(s): E66.01 - MORBID (SEVERE) OBESITY DUE TO EXCESS CALORIES Status: Chronic (5) MARTHA (obstructive sleep apnea) Code(s): G47.33 - OBSTRUCTIVE SLEEP APNEA (ADULT) (PEDIATRIC) Status: Chronic Comment: Needs outpt sleep study and home CPAP (6) Tobacco abuse Code(s): Z72.0 - TOBACCO USE Status: Chronic Comment: Smoking cessation resources, consider Nicotine patch (7) Acute on chronic respiratory failure with hypoxemia Code(s): J96.21 - ACUTE AND CHRONIC RESPIRATORY FAILURE WITH HYPOXIA Status: Acute - Plan cont current plan of care, PT/OT condition improved, Home once cleared by Pulmonary * .
[2017-05-10 16:51] VITALS: BP 79/51
--- NOTE | 2017-05-10 19:15 | PRG ---
DATE OF SERVICE: 05/10/2017 SERVICE: Pulmonary Medicine. INTERVAL HISTORY: The patient is doing fine from a respiratory standpoint. He is breathing comforta kwasi right now. He is coughing and bringing up a little bit of sputum, but swallows it down, so does not know the character of it. Otherwise, he indicates he feels like he is returning to his usual sta te of health with no specific complaints. PHYSICAL EXAMINATION: VITAL SIGNS: Afebrile, pulse 85, blood pressure 101/59, respirations 16, saturation 97% on 4 liters nasal cannula. GENERAL: The patient is awake and alert, in no apparent distress. LUNGS: Decreased air entry. Crackles are present dependently. There were rhonchi present, but contreras ged with cough. No wheezing can be auscultated. HEART: Normal rate, regular. ABDOMEN: Soft, nontender, nondistended. Bowel sounds positive. MUSCULOSKELETAL: No cyanosis or clubbing. No pitting in the bilateral lower extremities. NEUROLOGIC: Grossly nonfocal. LABORATORY DATA: WBC 9.1, hemoglobin 13.7, platelets 255,000. Neutrophil count is 82%. D-dimer 1.5 5. PH 7.36, pCO2 of 65, pO2 of 73 on 4 liters nasal cannula. Blood sugars ranged from 95-119. Bica rbonate 35. Basic metabolic profile is otherwise unremarkable. Urinalysis is unremarkable. ASSESSMENT: 1. Chronic hypoxic and hypercapnic respiratory failure. 2. Obesity hypoventilation syndrome. 3. Obstructive sleep apnea, presumed. 4. Acute on chronic diastolic heart failure. 5. Tobacco abuse, ongoing. PLAN: We will have the patient return to clinic to see me in 2-3 weeks in the outpatient setting. A t that point, I will arrange for him to undergo a polysomnogram. In the meantime, he is going to put 6 dollars in a jar every single day that he saves from not smoking in order to save up the copay shelly t is expected of him prior to the sleep study. It is his understanding that this may be up to 300 do llars, which could potentially be ideal breaker. Either way, he understands that weight loss moving forward is imperative in order to prevent him from slow the suffocating under his own weight. I have offered for him to stay another day or 2 in order to be on the BiPAP. The patient is actually reque sting transition home today, which I think is perfectly reasonable. He does remain at extraordinaril y high risk for recurrent admission. We need to continue diuresing him in the outpatient setting to get him closer to euvolemia.
--- NOTE | 2017-05-10 20:50 | DIS ---
DATE OF ADMISSION: 05/08/2017 DATE OF DISCHARGE: 05/10/2017 PRIMARY DISCHARGE DIAGNOSES: 1. Chronic hypoxic hypercapnic respiratory failure. 2. Sleep apnea. 3. Diastolic cardiac dysfunction. 4. Tobacco abuse. HOSPITAL COURSE: The patient was admitted secondary to shortness of breath and dyspnea. The patient was seen and assessed by the Pulmonary Service and was felt that the patient was most likely sufferi ng from obstructive sleep apnea. The patient had no documented sleep study on file. Thus, the pulmo nologist ordered a sleep study, which will be performed on an outpatient basis. The patient also was found to be hypersomnolent this was thought to be secondary to this hypercapnia. The patient was pr ovided the supplemental O2 and his condition improved. He was felt to be at baseline. He will be di scharged home with scheduled sleep study and follow up in the pulmonary clinic. DISPOSITION: To home. DISCHARGE ACTIVITY: As tolerated. DISCHARGE DIET: Cardiac, heart healthy. DISCHARGE MEDICATIONS: Please see medication rec list. PHYSICAL EXAMINATION: GENERAL: He is in no acute distress. HEAD: Normocephalic, atraumatic. LUNGS: Diminished. No wheezes, no rhonchi. HEART: Regular rate and rhythm. ABDOMEN: Morbidly obese, nontender. EXTREMITIES: No clubbing, cyanosis, 2 to 3+ edema bilaterally. FOLLOWUP: The patient is to follow up with his PCP within 7 to 10 days. The patient is to also obta in outpatient sleep study and to be seen and evaluated by the Pulmonary Service.
[2017-05-11] MEDS ORDERED: metFORMIN 500 MG TAB PO SCH (08:00)
--- NOTE | 2017-05-25 13:12 | EKG ---
Test Reason : SOB Blood Pressure : / mmHG Vent. Rate : 093 BPM Atrial Rate : 093 BPM P-R Int : 202 ms QRS Dur : 090 ms QT Int : 346 ms P-R-T Axes : 038 037 011 degrees QTc Int : 430 ms Sinus rhythm with Premature supraventricular complexes with occasional , and consecutive Premature ve ntricular complexes Possible Inferior infarct , age undetermined Abnormal ECG Confirmed by VARGAS ALMANZA ([id number]), pictures editor DONIS JARRELL ([id number]) on 05/25/2017 1:12:43 PM Referred By: ARCHIE Confirmed By:VARGAS ALMANZA
== END 2017-05-10 17:45 | disposition home or self-care (01) ==
LOC: ERS 09:44 → 2NO 16:05
PROVIDERS: ADMIT Family Medicine; ATTEND Family Medicine
DX: J96.12 Chronic respiratory failure with hypercapnia (principal); J96.11 Chronic respiratory failure with hypoxia; E11.22 Type 2 diabetes mellitus with diabetic chronic kidney disease; N18.3 Chronic kidney disease, stage 3 (moderate); I87.319 Chronic venous hypertension (idiopathic) with ulcer of unspecified lower extremity; I25.10 Atherosclerotic heart disease of native coronary artery without angina pectoris; J44.9 Chronic obstructive pulmonary disease, unspecified; G47.33 Obstructive sleep apnea (adult) (pediatric); I50.33 Acute on chronic diastolic (congestive) heart failure; F17.210 Nicotine dependence, cigarettes, uncomplicated; E78.5 Hyperlipidemia, unspecified; E66.01 Morbid (severe) obesity due to excess calories; Z68.42 Body mass index [BMI] 45.0-49.9, adult; Z88.0 Allergy status to penicillin; Z79.84 Long term (current) use of oral hypoglycemic drugs; Z79.899 Other long term (current) drug therapy; Z98.890 Other specified postprocedural states
CPT/HCPCS: 70450; 71010; 71275; 80048; 80053; 81003; 82553; 82805; 82962 ×3; 83605; 83690; 83880; 84484 ×2; 85007; 85025; 85027; 85379; 93005; 94640 ×3; 94660 ×3; 97116 ×2; 97139 ×3; 97530; 99285; 99406; G0378; G8978; G8979; 36415; 36416; J7620

== ENCOUNTER 2017-05-14 14:07 | Outpatient (CLI) | payer MEDICARE ==
--- NOTE | 2017-05-14 16:15 | PRG ---
DATE OF SERVICE: 05/14/2017 HISTORY OF PRESENT ILLNESS: Mr. Slime Franco is a very pleasant 62-year-old gentleman accompa nied by his significant other who presents to the [facility] for evaluation of venous ulcerations o f the right and left lower legs. The patient was last seen in the Wound Center in 2009 for a venous ulceration of the left posterior lower leg. The patient states that he has had ulcerations of the ri ght lower leg which have been present on an intermittent basis. He states that the ulceration of his left lower leg; however, has not healed completely in six years. Recently, the patient has received dressing changes with SilvaSorb gel. PAST MEDICAL HISTORY: 1. Benign prostatic hypertrophy. 2. Diabetes mellitus. 3. Hypertension. 4. Coronary artery disease. 5. Congestive heart failure. 6. Obstructive sleep apnea. 7. Restrictive lung disease. PAST SURGICAL HISTORY: 1. Back surgery. 2. Marlex mesh repair of incarcerated umbilical/epigastric hernia. 3. Hemorrhoid surgery. MEDICATIONS: 1. Pravachol. 2. Lisinopril/HCTZ. 3. Fenofibrate. 4. Lopressor. 5. Lasix. 6. Metformin. ALLERGIES: PENICILLIN. SOCIAL HISTORY: Significant for tobacco use of 1 pack of cigarettes per day for 40 years. The patie nt states that he stopped smoking one week ago. The patient admits to only rare consumption of alcoh ol. FAMILY HISTORY: Significant for coronary artery disease. The patient states that his brother was di agnosed with coronary artery disease. Family history is negative for diabetes mellitus. PHYSICAL EXAMINATION: VITAL SIGNS: Temperature 98.2, pulse 62, respirations 20, and blood pressure 84/59. GENERAL: A 62-year-old gentleman sitting on wheelchair in examination room in no acute distress. HEENT: Normocephalic, atraumatic. The patient is utilizing O2 via nasal cannula. NECK: No nuchal rigidity. CHEST: Clear to auscultation. CARDIOVASCULAR: Regular rate and rhythm. ABDOMEN: Soft. EXTREMITIES: A large ulceration of the left lower leg is present which measures approximately 12.5 x 11.0 cm. Small ulcerations are present over the right lower leg. No purulent drainage is associate d with any of the wounds. No cellulitis of the right or left lower leg is appreciated. Maceration o f the skin of the left lower leg is present. A dorsalis pedis pulse is palpable on the left. Signif icant edema of the right and left feet and lower legs is present on exam today. ASSESSMENT AND PLAN: 1. Chronic venous hypertension with ulcers and inflammation. Adaptic, Webril, and 3M Coban two-laye r compression system will be applied to the ulceration of the left lower leg without tension. Webril and 3M Coban two-layer compression system will be applied to the ulcerations of the right lower leg also without tension. Arrangements will also be made for dressing changes 2 times per week after arsalan ansing and irrigation with the assistance of Home Health. No antibiotics will be prescribed today ba sed upon the appearance of the wounds. I will see Mr. Franco again in 3-4 weeks. The patient under stands and is in agreement with the preceding treatment plan. 2. Benign prostatic hypertrophy. 3. Diabetes mellitus. Accu-Cheks will be obtained at the time of the patient's clinic visits. The patient has been told that for optimal wound healing, his blood glucoses should remain below 150. 4. Hypertension. 5. Coronary artery disease. 6. Congestive heart failure. 7. Obstructive sleep apnea. 8. Restrictive lung disease.
== END 2017-05-14 14:08 | disposition home or self-care (01) ==
LOC: WCC 14:07
PROVIDERS: ATTEND Family Medicine
DX: I87.333 Chronic venous hypertension (idiopathic) with ulcer and inflammation of bilateral lower extremity (principal); L97.829 Non-pressure chronic ulcer of other part of left lower leg with unspecified severity; L97.919 Non-pressure chronic ulcer of unspecified part of right lower leg with unspecified severity; E11.622 Type 2 diabetes mellitus with other skin ulcer; I11.0 Hypertensive heart disease with heart failure; I50.9 Heart failure, unspecified; N40.0 Benign prostatic hyperplasia without lower urinary tract symptoms; I25.10 Atherosclerotic heart disease of native coronary artery without angina pectoris; G47.33 Obstructive sleep apnea (adult) (pediatric); J98.4 Other disorders of lung
CPT/HCPCS: 29581; 36416; 99203; G0463

== ENCOUNTER 2017-06-06 11:02 | Outpatient (CLI) | payer MEDICARE ==
--- NOTE | 2017-06-06 13:25 | PRG ---
DATE OF SERVICE: 06/06/2017 HISTORY: Mr. Slime Melvin is a very pleasant 62-year-old gentleman, accompanied by his edae r-in-law, who presents to the [facility] Center for evaluation of venous ulcerations of the right and left lower legs. The patient was previously seen in the Wound Center in 2009 for a venous ulceration of the left posterior lower leg. The patient stated, at the time of his visit on 05/14/2017, that he bender s had ulcerations of the right lower leg, which have been present on an intermittent basis. He state d that the ulceration of his left lower leg, however, had not healed completely in 6 years. Just ayaka or to being seen in the Wound Center on 05/14/2017, the patient stated he had received dressing sharma es of SilvaSorb gel. After being seen in the Wound Center, the patient was placed on dressing change s of Adaptic, Webril, and the 3M Coban 2-layer compression system for the ulcerations of his right an d left lower legs. These dressing changes have been performed with the assistance of Home Health and the 3M Coban 2-layer compression system been applied to the right and left feet and lower legs witho ut tension. PHYSICAL EXAMINATION: VITAL SIGNS: Temperature 96.0, pulse 92, respirations 24, blood pressure 101/58, Accu-Chek 85. EXTREMITIES: A large ulceration of the left lower leg is present, which measures approximately 7.0 x 9.0 cm. The dimensions of the wound at the time of the patient's visit on 05/14/2017 were approxima tely 12.5 x 11.0 cm. Small ulcerations are present over the right lower leg. No purulent drainage i s associated with any of the wounds. No cellulitis of the right or left lower legs is appreciated. No maceration of the skin of the right or left lower legs is appreciated. A dorsalis pedis pulse is palpable on the right and on the left. Less edema of the right and left feet and lower legs is prese nt on exam today than at the time of the patient's last visit. ASSESSMENT AND PLAN: 1. Chronic venous hypertension with ulcers and inflammation. Dressing changes of Adaptic, Webril, a nd the 3M Coban 2-layer compression system will be continued for the ulcerations of the right and lef t lower legs 2 times per week after cleansing and irrigation with the assistance of Home Health. I w ill see Mr. Franco again in 3 weeks. 2. Benign prostatic hypertrophy. 3. Diabetes mellitus. The patient's Accu-Chek in clinic today is 85. The patient has been told shelly t for optimal wound healing, his blood glucoses should remain below 150. 4. Hypertension. 5. Coronary artery disease. 6. Congestive heart failure. 7. Obstructive sleep apnea. 8. Restrictive lung disease.
== END 2017-06-06 11:03 | disposition home or self-care (01) ==
LOC: WCC 11:02
PROVIDERS: ATTEND Family Medicine
DX: I87.332 Chronic venous hypertension (idiopathic) with ulcer and inflammation of left lower extremity (principal); E11.621 Type 2 diabetes mellitus with foot ulcer; I25.10 Atherosclerotic heart disease of native coronary artery without angina pectoris; N40.0 Benign prostatic hyperplasia without lower urinary tract symptoms; I50.9 Heart failure, unspecified; G47.33 Obstructive sleep apnea (adult) (pediatric)
CPT/HCPCS: 29581; 36416

== ENCOUNTER 2017-06-15 20:30 | Outpatient (CLI) | payer MEDICARE | END 2017-06-15 20:31 | disposition home or self-care (01) | LOC: SLEEPLAB 20:30 | PROVIDERS: ATTEND Internal Medicine | DX: G47.33 Obstructive sleep apnea (adult) (pediatric) (principal); E66.9 Obesity, unspecified; K21.9 Gastro-esophageal reflux disease without esophagitis; E11.9 Type 2 diabetes mellitus without complications; I11.0 Hypertensive heart disease with heart failure; I50.9 Heart failure, unspecified; R09.02 Hypoxemia | CPT/HCPCS: 95810 ==

== ENCOUNTER → 2017-06-25 | Day surgery (SDC) | payer MEDICARE ==
[2017-06-22 10:57] VITALS: BMI 49.4
[~2017-06-25] MED LIST: Furosemide 20 MG/2 ML VIAL ONE; Propofol 200 MG/20 ML VIAL ONE
[2017-06-25 07:22] LABS: #Eosinphils 0.1 thou/uL (0.0-0.7); #Monocytes 0.7 thou/uL (0.11-0.59); #Neutrophils 5.6 thou/uL (1.40-6.50); %Basophils 0.5 % (0.0-1.0); %Lymphocytes 13.4 % (21.0-51.0); %Monocytes 8.8 % (0.0-10.0); %Neutrophils 76.2 % (42.0-75.0); Hemoglobin 13.7 g/dL (14.0-18.0); Mean Corpuscular Hemoglobin 29.3 pg (27.0-31.0); Mean Corpuscular Volume 97.6 fl (80.0-94.0); Mean Platelet Volume 8.4 fL (7.4-10.4); Platelet Count 263 thou/uL (130-400); Red Blood Cell (RBC) Count 4.67 mill/uL (4.70-6.10); White Blood Cell (WBC) Count 7.3 thou/uL (4.8-10.8)
[2017-06-25 07:25] LABS: INR-International Normal Ratio 1.2; PTT 35.5 SEC (22.9-36.1); Prothrombin Time 15.3 SEC (12.0-14.7)
--- NOTE | 2017-06-25 08:57 | ECHO ---
PROCEDURE NOTE: Date: 06/25/17 PROCEDURE: Transesophageal echocardiogram ([facility]). INDICATION FOR PROCEDURE: 62-year-old patient who was planned to undergo bypass surgery for 3-vessel coronary disease. The jayesh ent had an echocardiogram performed which showed possible severe mitral valve regurgitation and also possible aortic valve stenosis. The patient was advised to undergo a transesophageal echocardiogram f or better evaluation of the valves in anticipation for possible repair during the bypass surgery. DESCRIPTION OF PROCEDURE: The patient was taken to the recovery area where he underwent short-acting propofol. The transesophag eal probe was easily passed down the distal esophagus. Within less than one minute, the patient start ed desaturating with O2 saturations in the 60% range. We were unable to continue the procedure, but w ere able to obtain the images that were required. IMPRESSION: 1. Severe mitral valve regurgitation. 2. Posterior mitral valve leaflet prolapse. 3. Moderate to severe tricuspid valve regurgitation. 4. Aortic valve has no evidence of stenosis. This was not clearly seen on the transesophageal echoc ardiogram, but at the end of procedure, a transthoracic echocardiogram was again performed and there was no gradient across the aortic valve and we were able to image the leaflets. 5. Left atrial dilatation. 6. Right atrial dilatation. Right atrium measured at 4.8 cm. 7. Ejection fraction of left ventricle is 55-60% without evidence of wall motion abnormalities. There were no other complications or difficulties encountered technically during the procedure, but t he patient did recover after the ET tube was removed and the patient required anesthesia with manual bagging and O2 sats then improved. Once the patient became more alert and off the propofol, then his O2 saturations returned back to baseline. He is now an 86-88% range.
--- NOTE | 2017-06-25 13:14 | DIS ---
ADMITTING DIAGNOSES: The patient was seen in the outpatient facility to undergo a transesophageal ec hocardiogram in anticipation of possible bypass surgery due to 3-vessel coronary artery disease. He was found to have moderate to severe mitral valve regurgitation as well as possible aortic valve sten osis on a transthoracic echocardiogram due to his poor echocardiogram windows secondary to morbid obe sity. He was advised to undergo a transesophageal echocardiogram prior to undergoing surgical proced ure. He was taken to the recovery area where he underwent the procedure today. His other diagnoses include hypertension, diabetes, and dyslipidemia. He has lower extremity edema. Morbid obesity, sleep apnea, chronic obstructive pulmonary disease with hypoxia and hypercapnia, j luis estive heart failure. DISCHARGE DIAGNOSES: The patient was seen in the outpatient facility to undergo a transesophageal ec hocardiogram in anticipation of possible bypass surgery due to 3-vessel coronary artery disease. He was found to have moderate to severe mitral valve regurgitation as well as possible aortic valve sten osis on a transthoracic echocardiogram due to his poor echocardiogram windows secondary to morbid obe sity. He was advised to undergo a transesophageal echocardiogram prior to undergoing surgical proced ure. He was taken to the recovery area where he underwent the procedure today. His other diagnoses include hypertension, diabetes, and dyslipidemia. He has lower extremity edema. Morbid obesity, sleep apnea, chronic obstructive pulmonary disease with hypoxia and hypercapnia, con gestive heart failure. PROCEDURES IN THE HOSPITAL: Included a transesophageal echocardiogram. DISCHARGE MEDICATIONS: Fenofibrate, pravastatin 40 mg a day, furosemide 40 mg 1 tablet every other d ay and occasionally b.i.d., albuterol sulfate ER 4 mg 1 tablet q.12h., aspirin 81 mg a day, metformin HCL 1 tablet with the morning meal and evening meals, 2000 mg q.a.m., lisinopril 20 mg daily, metopr olol 25 mg 1 tablet b.i.d. His followup will be with Dr. Blanco to discuss his bypass surgery. Whether or not he will go through the procedure is uncertain. He is not the best candidate due to his pulmonary status. HOSPITAL COURSE: This very unfortunate elderly gentleman was found to have severe 3-vessel coronary artery disease and it was felt that he would undergo bypass surgery; however, he also was noted to bender ve possible aortic valve stenosis as well as mitral valve regurgitation. He has lower extremity alon a. He has nonhealing left venous stasis ulcer with bilateral lower extremity edema. Also note he bender s morbid obesity, sleep apnea, and chronic obstructive pulmonary disease with hypoxia and hypercapnia and also congestive heart failure which is diastolic in nature. HOSPITAL COURSE: During the hospital course he was advised to undergo a transesophageal echocardiogr am today per Dr. Blanco. The probe was easily passed; however, the patient then suddenly developed hy poxia. We had to discontinue the transesophageal echocardiogram relatively quickly. The images; how ever, did reveal severe mitral valve regurgitation with posterior mitral valve prolapse as well as mo derate to severe tricuspid valve regurgitation. The aortic valve was not clearly visualized by trans esophageal echocardiogram, but we were able to visualize this after the procedure using a transthorac ic echocardiogram. There was no gradient noted across the aortic valve and there was wide opening of the aortic valve, some mild sclerosis, but there was no gradient across the aortic valve. The left ventricular systolic function is normal at probably 55-60% at least and appears to be better. At the end of the procedure the patient required manual bagging by the anesthesiologist in order for the O2 saturations to recover. He had dropped down to 60%, pO2 range. Otherwise, he had tolerated technic ally very well. There were no difficulties in passing the probe and at the end of the procedure when the patient had reversal of the propofol then he recovered rather quickly without difficulties or c omplications. We will discuss this case further with Dr. Blanco. This patient is not the best candid ate to undergo bypass surgery due to his morbid obesity and his severe pulmonary disease as well as h is other medical problems.
== END ==
LOC: CCL 05:45
PROVIDERS: ATTEND Internal Medicine Cardiovascular Disease
DX: I25.10 Atherosclerotic heart disease of native coronary artery without angina pectoris (principal); I34.0 Nonrheumatic mitral (valve) insufficiency; E11.9 Type 2 diabetes mellitus without complications; E78.5 Hyperlipidemia, unspecified; R60.0 Localized edema; E66.01 Morbid (severe) obesity due to excess calories; G47.30 Sleep apnea, unspecified; J44.9 Chronic obstructive pulmonary disease, unspecified; R09.02 Hypoxemia; R06.89 Other abnormalities of breathing; I11.0 Hypertensive heart disease with heart failure; I50.32 Chronic diastolic (congestive) heart failure; I83.029 Varicose veins of left lower extremity with ulcer of unspecified site; F17.210 Nicotine dependence, cigarettes, uncomplicated; Z68.42 Body mass index [BMI] 45.0-49.9, adult; Z79.82 Long term (current) use of aspirin; Z79.84 Long term (current) use of oral hypoglycemic drugs; Z79.899 Other long term (current) drug therapy; Z88.0 Allergy status to penicillin; Z98.890 Other specified postprocedural states
CPT/HCPCS: 36415; 85025; 85610; 85730; 93005; 93010; 93312; J1940; J2704

== ENCOUNTER 2017-06-27 10:02 | Outpatient (CLI) | payer MEDICARE ==
--- NOTE | 2017-06-27 12:14 | PRG ---
DATE OF SERVICE: 06/27/2017 HISTORY: Mr. Slime Franco is a very pleasant 62-year-old gentleman who presents to the Wound Center for evaluation of venous ulcerations of the right and left lower legs. The patient was previo usly seen in the Wound Center in 2009 for a venous ulceration of the left posterior lower leg. The p atient stated at the time of his visit on 05/14/2017 that he has had ulcerations of the right lower l eg which have been present on an intermittent basis. He stated that the ulceration of his left lower leg; however, had not healed completely in 6 years. Just prior to being seen in the Wound Center on 05/14/2017, the patient stated he had received dressing changes of SilvaSorb gel. After being seen in the Wound Center, the patient was placed on dressing changes of Adaptic, Webril, and 3M Coban 2 la willa compression system for the ulcerations of his right and left lower legs. These dressing changes have been performed with the assistance of Home Health. PHYSICAL EXAMINATION: VITAL SIGNS: Temperature 97.9, pulse 73, respirations 20, blood pressure 120/63, Accu-Chek 123. EXTREMITIES: A large ulceration of the left lower leg is present which measures approximately 6.2 x 4.9 cm. A green discoloration of the wound bed is present on exam today. Granulation tissue is pres ent within the wound margins. Three samples of the granulation tissue present within the wound kali ns were excised with the use of scissors and sent for aerobic and anaerobic cultures. No purulent dr walsh is associated with the wound. Erythema of the left lower leg is present which appears to be s econdary to stasis changes. No maceration of the skin of the left lower leg is present. Edema of th e left foot and lower leg is present on exam today. ASSESSMENT AND PLAN: 1. Chronic venous hypertension with ulcers and inflammation. The patient states that the ulceration s over the right lower leg have healed completely. For the ulceration over the left lower leg, Xerof orm gauze, ABDs, Webril, and the 3M Coban two-layer compression system will be applied today. The pa tient is to perform dressing changes of Xeroform gauze, ABDs, Webril, Singh, and Coban for the ulcerati on every other day after cleansing and irrigation. The patient states he would like to discontinue H ome Health. I will see Mr. Franco again in two weeks. At this time, the patient will be evaluated for the initiation of in-home lymphedema therapy. 2. Benign prostatic hypertrophy. 3. Diabetes mellitus. The patient's Accu-Chek in clinic today is 123. The patient has been reminde d that for optimal wound healing, his blood glucoses should remain below 150. 4. Hypertension. 5. Coronary artery disease. 6. Congestive heart failure. 7. Obstructive sleep apnea. 8. Obstructive lung disease.
== END 2017-06-27 10:03 | disposition home or self-care (01) ==
LOC: WCC 10:02
PROVIDERS: ATTEND Family Medicine
DX: I87.332 Chronic venous hypertension (idiopathic) with ulcer and inflammation of left lower extremity (principal); E11.9 Type 2 diabetes mellitus without complications; I25.10 Atherosclerotic heart disease of native coronary artery without angina pectoris; N40.0 Benign prostatic hyperplasia without lower urinary tract symptoms; I50.9 Heart failure, unspecified; G47.33 Obstructive sleep apnea (adult) (pediatric); J44.9 Chronic obstructive pulmonary disease, unspecified
CPT/HCPCS: 29581; 36416; 87070; 87077; 87186; 87205